=== PATIENT | male | born 1970 | race African-American/Black ===

== ENCOUNTER 2021-10-28 15:41 | Emergency (ER) | payer OTHER ==
[~2021-10-28] VITALS: Ht 177.8 cm; Wt 85.0 kg
[2021-10-28 15:49] VITALS: BP 117/74
[2021-10-28 17:49] LABS: EOSINOPHILS % 3.8 % (0.0-5.0); HEMATOCRIT. 46.9 % (42.0-52.0); HEMOGLOBIN. 15.6 g/dL (14.0-18.0); LYMPHOCYTES % 42.1 % (20.0-50.0); MEAN CORPUSCULAR HEMOGLOBIN 32.2 pg (28.0-32.0); MEAN CORPUSCULAR VOLUME 96.9 fL (80.0-94.0); MEAN PLATELET VOLUME 9.3 fl (7.4-10.4); MONOCYTES % 8.5 % (2.0-8.0); NEUTROPHILS % 44.6 % (40.0-76.0); PLATELET 151 x1000/uL (130-400); RED BLOOD CELL COUNT 4.84 mill/uL (4.7-6.1); RED CELL DISTRIBUTION WIDTH 13.8 % (11.6-14.6)
[2021-10-28 17:58] LABS: CHLORIDE 109 mEq/L (98-107)
== END 2021-10-28 19:05 | disposition left against medical advice (07) ==
LOC: ER 15:41
DX: M79.672 Pain in left foot (principal); J45.909 Unspecified asthma, uncomplicated
CPT/HCPCS: 36415; 80053; 80307; 80329; 85025; 99283